=== PATIENT | female | born 1985 | race Asian ===

== ENCOUNTER → 2018-09-29 | Outpatient (CLI) | payer OTHER | LOC: COL.RAD 09:45 | DX: N85.8 Other specified noninflammatory disorders of uterus (principal); Z87.42 Personal history of other diseases of the female genital tract ==

== ENCOUNTER → 2018-10-17 | Outpatient (CLI) | payer OTHER | LOC: MC.RAD 11:00 | DX: N60.11 Diffuse cystic mastopathy of right breast (principal); N60.12 Diffuse cystic mastopathy of left breast | CPT/HCPCS: G0279 ==